=== PATIENT | female | born 1980 | race Caucasian/White ===

== ENCOUNTER 2017-09-18 08:43 | Day surgery (SDC) | payer OTHER ==
[2017-09-18] MEDS ORDERED: NA CIT/CITRIC AC 30 ML ORAL UDC ONE (08:50)
[2017-09-18 08:51] LABS: Specific Gravity 1.015 (1.005-1.030)
[2017-09-18 08:54] LABS: Absolute Lymphocytes (CBC) 2.9 K/uL (0.7-4.9); Absolute Monocytes 0.6 K/uL (0.1-1.3); Absolute Neutrophil 4.7 K/uL (1.8-8.0); Basophils % 1.2 % (0-1.3); Eosinophils % 2.5 % (0-4.4); Hematocrit 38.9 % (36.0-45.0); Lymphocytes % 33.7 % (15.3-44.8); MCH 30.2 pg (27.0-35.0); MCV 89.6 fL (80-100); MPV 10.4 fL (7.6-11.3); Monocytes % 7.1 % (3.3-12.3); RBC Red Blood Cell Count 4.34 M/uL (3.86-4.86)
[2017-09-18] MEDS ORDERED: Ringers Lactate 1,000 ML IV ONE (08:59)
[2017-09-18] MEDS ORDERED: BUPIVACAINE 0.5% PF 10 ML VIAL ONE (09:13)
[2017-09-18] MEDS ORDERED: FENTANYL CITR 100 MCG/2 ML ONE ×2 (09:21→10:16)
[2017-09-18] MEDS ORDERED: LIDOCAINE 1% MPF 5 ML VIAL ONE (09:21)
[2017-09-18] MEDS ORDERED: PROPOFOL 200 MG/20 ML VIAL IV ONE (09:21)
[2017-09-18] MEDS ORDERED: MIDAZOLAM HCL 2 MG/2 ML INJ ONE (09:21)
[2017-09-18 09:29] LABS: Potassium 4.3 mmol/L (3.5-5.1)
[2017-09-18] MEDS ORDERED: CIPROFLOXACIN 400mg IV 400 MG/200 ML BAG IV ONE (09:29)
--- NOTE | 2017-09-18 09:35 | EKG ---
Test Date: 2017-09-18 Test Time: 08:31:06 Superintendent Plant: [facility] MEASUREMENT RESULTS: Intervals: Rate: 66 [place]: 138 QRSD: 80 QT: 408 QTc: 427 [place]: P: 32 [place]: 138 QRS: 51 T: 52 INTERPRETIVE STATEMENTS: Normal sinus rhythm Normal ECG No previous ECG available for comparison Electronically Signed On 09-18-17 09:34:35 CDT by Law Jimenes
--- NOTE | 2017-09-18 09:36 | RAD REPORT ---
EXAM DESCRIPTION: RAD - Chest Pa And Lat (2 Views) - 09/18/2017 8:37 am CLINICAL HISTORY: Preop chest examination, soft tissue mass removal, smoking history COMPARISON: None. TECHNIQUE: PA and lateral views of the chest were obtained. FINDINGS: The lungs are clear. Heart size is normal and central vasculature is within normal limit s. No pleural effusion or pneumothorax seen. No acute bony finding noted. No aortic abnormality. IMPRESSION: No acute cardiopulmonary process.
[2017-09-18] MEDS ORDERED: KETOROLAC 30 MG/ML INJ ONE (09:58)
[2017-09-18] MEDS ORDERED: ONDANSETRON HCL 40 MG/20 ML VIAL ONE (10:15)
[2017-09-18] MEDS ORDERED: ALBUTEROL 2.5 MG/3 ML NEB SOL ONE (10:36)
[2017-09-18] MEDS ORDERED: HYDROCODONE/APAP 7.5/325 MG TAB ONE (11:37)
--- OUTSIDE RECORDS SUMMARY | 2017-09-18 13:24 | XMS REPORT | Continuity of Care Document ---
:1980 Author Organization Interface Problems Problem Status Onset Date Classification Date Comments Source Reported Medications Medication Details Route Status Patient Ordering Order Source Instructions Provider Date Allergies, Adverse Reactions, Alerts Substance Category Reaction Severity Reaction Status Date Comments Source type Reported Immunizations Immunization Date Given Site Status Last Updated Comments Source Results Order Results Value Reference Date Interpretation Comments Source Name Range Vital Signs Vital Sign Value Date Comments Source Encounters Location Location Encounter Encounter Reason Attending ADM DC Status Source Details Type Number For Provider Date Date Visit Outpatient [id number] DARRYL 07/[facility] [address] [place] [address] Outpatient [id number] DARRYL 09/12 [place] [id number] Gio Procedures Procedure Code Date Perfomer Comments Source
--- NOTE | 2017-09-18 21:54 | OP ---
Date of Procedure: 09/18/2017 Surgeon: Jett Sharp MD Preoperative Diagnosis: Right face mass and perianal mass x2. Postoperative Diagnosis: Right face mass and perianal mass x2. Procedure: Excision of right face mass, exam under anesthesia, rigid proctoscopy, and excision of pe rianal mass x2. Estimated Blood Loss: Minimal. Specimen: Right face mass and perianal mass. Findings: As above. The perianal mass probably external hemorrhoids or skin tags combination. Anesthesia: General. Complications: None. Disposition: The patient tolerated the procedure, in stable condition and taken to Recovery in good general condition. Procedure In Detail: The patient was brought to the OR and placed in the supine position. General a nesthesia was begun. The patient was placed in lithotomy position and the right face and perineum we re prepped and draped in the usual sterile fashion. The right face mass had a very small stalk. It was approximately 1 cm in diameter and was excised with cautery and bleeding controlled with cautery. Approximately, a 3 mm wound remained. Neosporin used and area was injected with Marcaine 0.5% prio r to the excision. Then exam under anesthesia, rigid proctoscopy was performed. No evidence of dise ase identified in the anal canal and subsequently, the patient had either a skin tag or external hemo rrhoid in the anterior and posterior aspect, which was excised utilizing Harmonic scalpel. Marcaine 0.5% was also infiltrated there for postop pain control. Bleeding was controlled with cautery. Ster ile dressing was applied. The patient was awakened and taken to Recovery in good general condition. Discharge Note: The patient will go to Day-Surgery and home when stable. Disposition: Home. Condition: Stable. Discharge Instructions: Resume home medications and diet. Activity as tolerated. No heavy lifting. Remove outer dressing in a.m. Sitz baths q.i.d. High-fiber diet. Metamucil 1 tablespoon p.o. t.i. d., Richi-HC 2.5% into anus b.i.d., Cipro 5 mg p.o. q.12, Tylenol No.3 one tablet p.o. q.4 p.r.n. jose david n. Follow up in my office in 2 weeks. Call for appointment. CLIFF/DION Voice ID: [id number] Report ID: [id number]
== END 2017-09-18 12:00 | disposition home or self-care (01) ==
LOC: OR 08:43
PROVIDERS: ATTEND Surgery
PROC: 0D5P8ZZ Destruction of Rectum, Via Natural or Artificial Opening Endoscopic (ICD-10-PCS; 2017-09-18)
PROC: 0HB2XZZ Excision of Right Ear Skin, External Approach (ICD-10-PCS; principal; 2017-09-18 10:00)
DX: H93.8X1 Other specified disorders of right ear (principal); K62.0 Anal polyp; K64.4 Residual hemorrhoidal skin tags
CPT/HCPCS: 36415; 71046; 80048; 81025; 85025; 88304; 88305; 93005; J0744; J2250; J2405; J3010